=== PATIENT | male | born 1970 | race Caucasian/White ===

== ENCOUNTER 2018-06-01 23:38 | Emergency (ER) | payer SELFPAY, MEDICAID ==
[2018-06-02] MEDS: ACETAMINOPHEN 325 MG TAB PO (00:13)
[2018-06-02] MEDS: DIPHTH/TET/ACEL PERTUSS (ADULT) 0.5 ML VIAL IM* (00:16)
[2018-06-02] MEDS: KETOROLAC 30 MG INJ IM (03:28)
== END 2018-06-02 05:41 | disposition home or self-care (01) ==
LOC: E/R 23:38
DX: S72.432A Displaced fracture of medial condyle of left femur, initial encounter for closed fracture (principal); S80.01XA Contusion of right knee, initial encounter; R40.2142 Coma scale, eyes open, spontaneous, at arrival to emergency department; R40.2252 Coma scale, best verbal response, oriented, at arrival to emergency department; R40.2362 Coma scale, best motor response, obeys commands, at arrival to emergency department; Y03.0XXA Assault by being hit or run over by motor vehicle, initial encounter; Z23 Encounter for immunization
CPT/HCPCS: 29505; 73562; 73700; 90471; 90715; 96372; 99285-25

== ENCOUNTER 2018-08-14 13:12 | Emergency (ER) | payer SELFPAY ==
[2018-08-14 15:09] LABS: ADD MAN DIFF? NO
[2018-08-14] MEDS: LIDOCAINE 1% (MPF) 30 ML INJ INJ (15:11)
[2018-08-14] MEDS: KETOROLAC 15 MG INJ IV (15:11)
[2018-08-14] MEDS: SOD CHLORIDE 0.9% 1,000 ML IV (15:11)
[2018-08-14 15:12] LABS: BASOPHILS % 0.7 % (0.0-2.0); EOSINOPHILS % 0.9 % (0.0-7.0); HEMATOCRIT 37.7 % (42.0-52.0); HEMOGLOBIN 13.5 g/dl (14.0-18.0); LYMPHOCYTES # 1.6 10^3/ul (0.8-2.9); LYMPHOCYTES % 38.3 % (15.0-51.0); MEAN CORPUSCULAR HEMOGLOBIN 34.1 pg (29.0-33.0); MEAN CORPUSCULAR HGB CONC 35.8 g/dl (32.0-37.0); MEAN CORPUSCULAR VOLUME 95.2 fl (82.0-101.0); MEAN PLATELET VOLUME 10.2 fl (7.4-10.4); MONOCYTE # 0.4 10^3/ul (0.3-0.9); MONOCYTES % 8.4 % (0.0-11.0); NEUTROPHIL # 2.2 10^3/ul (1.6-7.5); NEUTROPHILS % 51.5 % (39.0-77.0); PLATELET COUNT 106 10^3/UL (140-415); RED BLOOD COUNT 3.96 10^6/ul (4.70-6.10); RED CELL DISTRIBUTION WIDTH 12.9 % (11.5-14.5)
[2018-08-14 15:12] LABS: WHITE BLOOD COUNT 4.3 10^3/ul (4.8-10.8)
[2018-08-14] MEDS: CEPHALEXIN 500 MG CAP PO (15:28)
[2018-08-14] MEDS: MUPIROCIN 2% 22 GM OINT TOP (15:30)
[2018-08-14 15:35] LABS: ANION GAP 16 (5-13); BLOOD UREA NITROGEN 6 mg/dl (7-20); CALCIUM 8.9 mg/dl (8.4-10.2); CARBON DIOXIDE 24 mmol/L (21-31); CHLORIDE 102 mmol/L (97-110); CREATININE 0.55 mg/dl (0.61-1.24); Estimated GFR > 60 mL/min (>60); GLUCOSE 303 mg/dl (70-220); POTASSIUM 4.1 mmol/L (3.5-5.1); SODIUM 142 mmol/L (135-144)
== END 2018-08-14 17:02 | disposition home or self-care (01) ==
LOC: E/R 13:12
DX: S80.212A Abrasion, left knee, initial encounter (principal); F10.20 Alcohol dependence, uncomplicated; W26.8XXA Contact with other sharp object(s), not elsewhere classified, initial encounter; Y92.9 Unspecified place or not applicable
CPT/HCPCS: 36415; 80048; 85025; 96374; 99284-25